=== PATIENT | female | born 1990 | race Caucasian/White ===

== ENCOUNTER 2018-07-07 19:34 | Outpatient (CLI) | payer BC | END 2018-07-07 19:35 | disposition critical access hospital (66) | LOC: EMS 19:34 | PROVIDERS: ATTEND Surgery | DX: R22.0 Localized swelling, mass and lump, head (principal); R20.2 Paresthesia of skin; R11.2 Nausea with vomiting, unspecified | CPT/HCPCS: A0425; A0427 ==

== ENCOUNTER 2018-07-07 20:06 | Emergency (ER) | payer BC ==
[2018-07-07] MEDS ORDERED: EPINEPHrine 1 MG/ML AMP IM STA (20:28)
[2018-07-07] MEDS ORDERED: DEXAMETHASONE 10 MG/ML VIAL IVP STA (20:28)
--- NOTE | 2018-07-07 20:33 | ED Physician Documentation ---
History of Present Illness - Stated complaint Stated Complaint: ALLERGIC REACTION - Chief complaint Chief Complaint: Allergic Rx - History obtained from History obtained from: Patient - History of Present Illness Timing: Today (28-year-old with peanut allergy and history of anaphylaxis. She is visiting from [place] and does not have her EpiPen with her. She ate some sausage that had peanuts in it and subsequently developed throat swelling and vomiting. She feels better now after Benadryl but still with some mild residual symptoms. No rash.) Review of Systems Constitutional: denies: Fever, Chills Nose: reports: Rhinorrhea / runny nose Throat: reports: Sore throat GI: reports: Nausea, Vomiting. denies: Diarrhea PD PAST MEDICAL HISTORY - Past Medical History Past Medical History: Yes Respiratory: Asthma Endocrine/Autoimmune: HyPOthyroidism - Past Surgical History Past Surgical History: Yes HEENT: Tonsil/Adenoidectomy - Present Medications Home Medications: Ambulatory Orders Medication Instructions Recorded Confirmed Levothyroxine Sodium 1 tab PO DAILY 07/07/18 07/07/18 - Allergies Allergies/Adverse Reactions: Allergies Allergy/AdvReac Type Severity Reaction Status Date / Time No Known Drug Allergies Allergy Verified 07/07/18 20:32 - Social History Does the pt smoke?: No Smoking Status: Never smoker Does the pt drink ETOH?: No Does the pt have substance abuse?: No - Immunizations Immunizations are current?: Yes - POLST Patient has POLST: No PD ED PE NORMAL - Vitals Vital signs reviewed: Yes - General General: Alert and oriented X 3, No acute distress - HEENT HEENT: PERRL, EOMI - Neck Neck: Supple, no meningeal sign, No bony TTP - Cardiac Cardiac: RRR, No murmur - Respiratory Respiratory: Clear bilaterally - Abdomen Abdomen: Non tender - Neuro Neuro: Alert and oriented X 3, Normal speech Results - Vitals Vitals: Vital Signs - 24 hr 07/07/18 07/07/18 07/07/18 20:05 20:31 20:40 Temperature 36.7 C Heart Rate 80 80 70 Respiratory 18 16 16 Rate Blood Pressure 131/82 H 126/84 H 96/56 L O2 Saturation 99 100 100 07/07/18 07/07/18 07/07/18 20:52 21:04 21:11 Temperature 36.2 C L Heart Rate 67 76 90 Respiratory 16 18 17 Rate Blood Pressure 111/70 122/65 122/65 O2 Saturation 100 98 100 Oxygen O2 Source Room air PD MEDICAL DECISION MAKING - ED course ED course: 28-year-old woman with mild but improving anaphylaxis. She was administered epinephrine and steroids here and observed. Departure - Departure Disposition: 01 Home, Self Care Clinical Impression: Anaphylactic reaction Qualifiers: Encounter type: initial encounter Qualified Code(s): T78.2XXA - Anaphylactic shock, unspecified, initial encounter Condition: Good Record reviewed to determine appropriate education?: Yes Instructions: ED Allergic Reaction General Other Comments: Remember to carry her EpiPen's with you and use them. Always better to use an EpiPen and not need it than vice versa.
[2018-07-07] MEDS ORDERED: SODIUM CHLORIDE 0.9% 1,000 ML IV ONE (20:45)
[2018-07-07 21:36] VITALS: BP 114/64
== END 2018-07-07 21:38 | disposition home or self-care (01) ==
LOC: ED 20:06
DX: T78.01XA Anaphylactic reaction due to peanuts, initial encounter (principal); E03.9 Hypothyroidism, unspecified
CPT/HCPCS: 96361; 96372; 96374; 99283; 99284